=== PATIENT | female | born 1985 | race American Indian/Alaskan Native ===

== ENCOUNTER 2018-05-25 10:21 | Emergency (ER) | payer SELFPAY ==
[2018-05-25 10:22] VITALS: BMI 29.3
[2018-05-25 10:41] VITALS: BP 125/82; PULSE 71; RESP 20; TEMP 97.4; O2SAT 100
--- NOTE | 2018-05-25 13:32 | C.PDOC ---
History Of Present Illness 32 year old female presents to the ED for evaluation of minor eye irritations, nasal congestion and sore throat for 4 days. Patient has been taking DayQuil and applying eye drops twice a day. She has been eating/drinking well and denies fever, chills. Time Seen by Provider: 05/25/18 10:45 Chief Complaint (Nursing): ENT Problem History Per: Patient History/Exam Limitations: None Onset/Duration Of Symptoms: Days (4) Current Symptoms Are (Timing): Still Present Past Medical History Reviewed: Historical Data, Nursing Documentation, Vital Signs Vital Signs: Last Vital Signs Temp 97.4 F L 05/25/18 10:34 Pulse 71 05/25/18 10:34 Resp 20 05/25/18 10:34 BP 125/82 05/25/18 10:34 Pulse Ox 100 05/25/18 10:34 - Medical History PMH: No Chronic Diseases Surgical History: No Surg Hx - [facility] Procedures DELIVERY OF PRODUCTS OF CONCEPTION, EXTERNAL APPROACH (05/25/16) REPAIR PERINEUM SKIN, EXTERNAL APPROACH (05/25/16) Family History: States: Unknown Family Hx - Social History Hx Alcohol Use: Yes Hx Substance Use: No - Immunization History Hx Tetanus Toxoid Vaccination: Yes Hx Influenza Vaccination: Yes Hx Pneumococcal Vaccination: No Review Of Systems Constitutional: Negative for: Fever, Chills Eyes: Positive for: Other (eye irritation ) ENT: Positive for: Nose Congestion, Throat Pain Physical Exam - Physical Exam Appears: Non-toxic, No Acute Distress Skin: Normal Color, Warm, Dry Head: Atraumatic, Normacephalic Eye(s): bilateral: Other (minor scleral irritation, left>right) Throat: Normal, No Erythema, No Exudate Neck: Supple Lymphatic: No Other (submanibular lymphadenopathy ) Extremity: Normal ROM Neurological/Psych: Oriented x3, Normal Speech, Normal Cognition ED Course And Treatment O2 Sat by Pulse Oximetry: 100 Progress Note: Motrin PO given. Disposition Doctor Will See Patient In The: Office Counseled Patient/Family Regarding: Studies Performed, Diagnosis - Disposition [facility]errals: [facility] [Outside] [facility] [[facility]] [facility] [Outside] [facility] [Outside] Disposition: HOME/ ROUTINE Disposition Time: 13:00 Condition: GOOD Additional Instructions: Dayquil/Nyquil Visine eye drops (or equivalent) as per package instructions Instructions: Viral Syndrome (DC), Conjunctivitis (Noninfectious Pinkeye) Forms: [facility] (Fijian), School Excuse - Clinical Impression Clinical Impression: Viral syndrome
== END 2018-05-25 11:01 | disposition home or self-care (01) ==
LOC: C.ER 10:21
DX: B34.9 Viral infection, unspecified (principal)

== ENCOUNTER 2018-08-29 16:45 | Outpatient (CLI) | payer SELFPAY | END 2018-08-29 16:46 | disposition home or self-care (01) | LOC: C.LAB 16:45 | DX: Z13.9 Encounter for screening, unspecified (principal) ==

== ENCOUNTER 2018-10-08 22:57 | Emergency (ER) | payer SELFPAY ==
[2018-10-08 22:57] VITALS: BMI 29.3
[2018-10-08 23:11] VITALS: BP 126/74; PULSE 67; RESP 18; TEMP 98.3; O2SAT 99
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
== END 2018-10-08 23:34 | disposition home or self-care (01) ==
LOC: C.ER 22:57
DX: S01.511A Laceration without foreign body of lip, initial encounter (principal); Y04.0XXA Assault by unarmed brawl or fight, initial encounter